=== PATIENT | male | born 1935 | race Caucasian/White ===

== ENCOUNTER 2019-11-01 14:18 | Emergency (ER) | payer OTHER, MEDICARE ==
[~2019-11-01] VITALS: Ht 170.2 cm; Wt 50.0 kg
[~2019-11-01 14:18] MED LIST: AMOX-422 PO; DIGO125T2 PO; HYDR-4383 PO; LISI-604 PO
[2019-11-01 14:25] VITALS: BP 132/71
== END 2019-11-01 15:48 | disposition home or self-care (01) ==
LOC: ER 14:18
DX: G89.18 Other acute postprocedural pain (principal); G43.909 Migraine, unspecified, not intractable, without status migrainosus; Z90.89 Acquired absence of other organs; Z98.890 Other specified postprocedural states; Z79.899 Other long term (current) drug therapy
CPT/HCPCS: 99284

== ENCOUNTER 2019-11-05 08:42 | Day surgery (SDC) | payer MEDICARE, OTHER ==
[~2019-11-05] VITALS: Ht 170.2 cm; Wt 53.4 kg
[2019-11-05] VITALS (10 sets, daily range): BP systolic 134–160; BP diastolic 74–95
[~2019-11-05 08:42] MED LIST changes: +famotidine 20mg tablet PO ONE; +ringers solution, lacted 1,000 ML IV SCH
[2019-11-05] MEDS ORDERED: ceFAZolin 2gm in dextrose, iso 50 ML IV ONE (09:10)
[2019-11-05] MEDS ORDERED: fentaNYL/PF 50MCG/1 ML 2ML syringe ONE (11:42)
[2019-11-05] MEDS ORDERED: LIDOcaine 1% 30ml preserv. free vial ONE (11:46)
[2019-11-05] MEDS ORDERED: BUPIVAcaine/PF 2.5 mg/ml (0.25%) 30ml vial ONE (11:47)
[2019-11-05] MEDS ORDERED: ringers solution, lacted 1,000 ML IV SCH (11:50)
[2019-11-05] MEDS ORDERED: meperidine/PF 25mg/ml syringe IV PRN ×2 (11:50)
[2019-11-05] MEDS ORDERED: morphine 2 MG/ML inj. syringe IV PRN (11:50)
[2019-11-05] MEDS ORDERED: proCHLORperazine 10 MG/2 ml inj IV PRN (11:50)
[2019-11-05] MEDS ORDERED: ondansetron/PF 4mg/2ml inj IV PRN (11:50)
[2019-11-05] MEDS ORDERED: LIDOcaine 2% (20mg/ml) 5ml vial ONE (11:55)
[2019-11-05] MEDS ORDERED: propofol inj 20 ML IV ONE (11:55)
[2019-11-05] MEDS ORDERED: midazolam 2 mg/2 ml injection ONE (11:55)
--- NOTE | 2019-11-05 12:25 | NUR ---
Received from OR via BED, accompanied by Anesthesiologist DR KIM-- and report given by Anesthesiolgist. PATIENT A&OX4, DENIES PAIN, V/S WNL, NEUROVASCULAR CHECKS INTACT, 20G PIV RUE, SCD ON, BANDAIDS TO ABDOMEN CDI
--- NOTE | 2019-11-05 13:45 | NUR ---
PATIENT A&OX4, PAIN CONTROLLED, V/S WNL, NEUROVASCULAR CHECKS INTACT, 20G PIV RUE D/C, SCD OFF, BANDAIDS TO ABDOMEN CDI, I HAVE REVIEWED D/C INSTRUCTIONS WITH PATIENT AND FAMILY AND GIVEN SCRIPT FOR [facility] TO PATIENT AND THEY HAVE VERBALIZED UNDERSTANDING. PATIENT D/C HOME WITH ALL BELONGINGS AND FAMILY GAVE TRANSPORT HOME.
== END 2019-11-05 13:45 | disposition home or self-care (01) ==
LOC: PAS 08:42
PROVIDERS: ATTEND Surgery
DX: T81.30XA Disruption of wound, unspecified, initial encounter (principal); M19.90 Unspecified osteoarthritis, unspecified site; D64.9 Anemia, unspecified; I10 Essential (primary) hypertension; G43.909 Migraine, unspecified, not intractable, without status migrainosus; Z85.9 Personal history of malignant neoplasm, unspecified; Z98.890 Other specified postprocedural states; Z79.899 Other long term (current) drug therapy; Z87.891 Personal history of nicotine dependence; Y83.8 Other surgical procedures as the cause of abnormal reaction of the patient, or of later complication, without mention of misadventure at the time of the procedure; Y92.89 Other specified places as the place of occurrence of the external cause
CPT/HCPCS: 13160; J2001; J2175; J2250; J2704; J3010; J3490; A4215; A7000; J7120

== ENCOUNTER 2019-11-16 17:56 | Emergency (ER) | payer OTHER, MEDICARE ==
[~2019-11-16] VITALS: Ht 170.2 cm; Wt 43.2 kg
[~2019-11-16 17:56] MED LIST changes: -famotidine 20mg tablet PO ONE; -ringers solution, lacted 1,000 ML IV SCH
[2019-11-16 18:06] VITALS: BP 150/82
[2019-11-16] MEDS ORDERED: LOPE2CAP PO (19:20)
[2019-11-16] MEDS ORDERED: NEOM1OIN8 TOP (19:20)
== END 2019-11-16 20:13 | disposition home or self-care (01) ==
LOC: ER 17:57
DX: S90.812A Abrasion, left foot, initial encounter (principal); S90.811A Abrasion, right foot, initial encounter; G43.909 Migraine, unspecified, not intractable, without status migrainosus; R19.7 Diarrhea, unspecified; Z90.89 Acquired absence of other organs; Z98.890 Other specified postprocedural states; Z79.899 Other long term (current) drug therapy; X58.XXXA Exposure to other specified factors, initial encounter; Y93.89 Activity, other specified; Y92.89 Other specified places as the place of occurrence of the external cause; Y99.8 Other external cause status
CPT/HCPCS: 99282; 99283